=== PATIENT | male | born 1955 | race Caucasian/White ===

== ENCOUNTER 2019-07-22 10:15 | Outpatient (CLI) | payer OTHER ==
[2019-07-22 10:35] LABS: BASOPHILS # (AUTO) 0.1 10^3/uL (0.0-0.1); BASOPHILS % (AUTO) 0.6 %; EOSINOPHILS # (AUTO) 0.2 10^3/uL (0.0-0.7); HGB - HEMOGLOBIN 15.6 g/dL (14.0-18.0); LYMPHOCYTES # (AUTO) 2.2 10^3/uL (1.5-3.5); LYMPHOCYTES % (AUTO) 27.4 %; MEAN CORPUSCULAR HEMOGLOBIN 30.3 pg (27.0-31.0); MEAN CORPUSCULAR HGB CONC 32.8 g/dL (32.0-36.0); MEAN CORPUSCULAR VOLUME 92.2 fL (80.0-94.0); MEAN PLATELET VOLUME 9.3 fL (7.4-11.4); MONOCYTES # (AUTO) 0.6 10^3/uL (0.0-1.0); MONOCYTES % (AUTO) 7.8 %; NEUTROPHILS # (AUTO) 4.9 10^3/uL (1.5-6.6); NEUTROPHILS % (AUTO) 61.7 %; PLT - PLATELET COUNT 334 10^3/uL (130-450); RED BLOOD COUNT 5.15 10^6/uL (4.70-6.10); RED CELL DISTRIBUTION WIDTH 13.9 % (12.0-15.0)
[2019-07-22 10:53] LABS: ALBUMIN 4.3 g/dL (3.2-5.5); ALBUMIN/GLOBULIN RATIO 1.2 (1.0-2.2); ALKALINE PHOSPHATASE 59 IU/L (42-121); ALT ALANINE AMINOTRANSFERASE 29 IU/L (10-60); AST ASPARTATE AMINOTRANSFERASE 26 IU/L (10-42); BILIRUBIN,TOTAL 0.6 mg/dL (0.2-1.0); BUN - BLOOD UREA NITROGEN 15 mg/dL (6-20); CALCIUM 9.7 mg/dL (8.5-10.3); CARBON DIOXIDE - CO2 24 mmol/L (21-32); CHLORIDE 104 mmol/L (101-111); CHOL/HDL RATIO 5.5 (<5.0); CHOLESTEROL 274 mg/dL; CREATININE 0.9 mg/dL (0.6-1.2); GFR - MDRD 85 (>89); GLUCOSE 140 mg/dL (70-100); HDL CHOLESTEROL 50 mg/dL; LDL CHOLESTEROL,CALCULATED 203 mg/dL; LDL/HDL RATIO 4.1 (<3.6); SODIUM 139 mmol/L (135-145); TOTAL PROTEIN 7.8 g/dL (6.7-8.2); VLDL CHOLESTEROL 21 mg/dL
== END 2019-07-22 10:16 | disposition home or self-care (01) ==
LOC: LAB 10:15
PROVIDERS: ATTEND Nurse Practitioner
DX: Z00.00 Encounter for general adult medical examination without abnormal findings (principal); Z13.29 Encounter for screening for other suspected endocrine disorder; Z13.220 Encounter for screening for lipoid disorders
CPT/HCPCS: 36415; 80053; 80061; 83721; 85025

== ENCOUNTER 2022-04-08 09:48 | Emergency (ER) | payer MEDICARE, OTHER ==
[2022-04-08 10:06] VITALS: BP 177/91
[2022-04-08] MEDS ORDERED: TETANUS/DIPHTHERIA/PERTUSSIS 0.5 ML SYRINGE IM ONE (11:52)
[2022-04-08] MEDS ORDERED: lidocaine 1% 20 ML MDV SUBQ ONE (11:53)
--- NOTE | 2022-04-08 11:56 | ED Physician Documentation ---
History of Present Illness - Stated complaint Stated Complaint: THUMB LAC - Chief complaint Chief Complaint: Laceration - Additonal information Additional information: 66-year-old male presents emergency department for evaluation of a left thumb laceration sustained last night when using a table saw. He is right-hand dominant. He sustained an approximate 2 and half centimeter laceration across the fat pad of the thumb. Bleeding has essentially stopped but patient is here for closure. He thinks his last tetanus was about 20 years ago. He denies taking any medications or anticoagulants. Patient is rather frustrated angry and upset about the wait time in the emergency department at the time of my initial evaluation Review of Systems Constitutional: reports: Reviewed and negative Throat: reports: Reviewed and negative Cardiac: reports: Reviewed and negative Respiratory: reports: Reviewed and negative Skin: reports: Laceration (s) Musculoskeletal: reports: Reviewed and negative PD PAST MEDICAL HISTORY - Present Medications Home Medications: Ambulatory Orders Medication Instructions Recorded Confirmed cephALEXin [Keflex] 500 mg PO Q6H #20 cap 04/08/22 oxyCODONE [Roxicodone] 5 mg PO BID PRN #5 tablet 04/08/22 - Allergies Allergies/Adverse Reactions: Allergies Allergy/AdvReac Type Severity Reaction Status Date / Time No Known Drug Allergies Allergy Verified 04/08/22 10:06 PD ED PE EXPANDED - Extremities Extremities: Left finger(s) (2.5 cm laceration across the fat pad of the left thumb. Patient is able to flex and extend at DIP joint. Neurovascularly intact. Distal tip is grossly swollen with a fair amount of subcutaneous fat exuding through the wound.) Results - Vitals Vitals: Vital Signs - 24 hr 04/08/22 10:02 Temperature 36.6 C Heart Rate 88 Respiratory 15 Rate Blood Pressure 177/91 H O2 Saturation 99 Oxygen O2 Source Room air - Rads (name of study) left thumb Radiology: EMP read indepedently (No acute fracture or osseous lesion) Procedures - Laceration (location) left thumb Length in cm: 2.5 Wound type: Linear, Into subcut fat, Into muscle, Contaminated Anesthesia: Lidocaine 1% Wound preparation: Hibiclens, Irrigated copiously NS Skin layer closure: Interrupted, Size #-0 - enter number (4), Sutures - enter # (4) Other: Patient tolerated well, No complications, Neurovascular intact, Tetanus booster given PD MEDICAL DECISION MAKING - ED course Complexity details: reviewed results, considered differential, d/w patient ED course: 66-year-old male presents emergency department for evaluation of a left thumb laceration sustained last night when using a table saw. The wound is now about 18 hours old. Unfortunately it is a gaping wound with fair amount of subcutaneous tissue as well as muscle noted. X-ray did not reveal findings to suggest a fracture. He is neurovascularly intact able to flex and extend easily at the DIP joint. Patient's tetanus was updated today. He very much desired primary closure. We discussed the risk and benefit of delayed wound closure And he agreed to proceed. I was able to approximate most of the wound edges using a 4 interrupted nylon sutures. There was a portion of the wound on the ulnar side of the thumb that could not be approximated and has some exposed subcutaneous tissue. Given the high risk of infection patient was given a gram of Ancef here in the emergency department will be discharged with 5 days of cephalexin. We did discuss routine wound care as well as emergent return precautions for concerns of infection. I am prescribing a short course of short-acting opioid pain medication for this patient. I have reviewed the patients PLATEMAN and no concerning findings were noted. I have discussed that the opioids are for short term therapy only, and will not be refilled from the ED. Departure - Departure Disposition: 01 Home, Self Care Clinical Impression: Laceration of left thumb Qualifiers: Encounter type: initial encounter Damage to nail status: without damage Foreign body presence: without foreign body Qualified Code(s): S61.012A - Laceration without foreign body of left thumb without damage to nail, initial encounter Condition: Stable Record reviewed to determine appropriate education?: Yes Prescriptions: cephALEXin [Keflex] 500 mg PO Q6H #20 cap oxyCODONE [Roxicodone] 5 mg PO BID PRN #5 tablet PRN Reason: Pain Comments: Your suture(s) should be removed in 10 days. In 24 hours you may remove the dressing wash gently with warm soap and water, apply any antibiotic ointment and a simple bandage. Your tetanus is up-to-date as of today. Please attempt to keep your wound clean and dry. Do not submerge it in dirty dishwater or bath water. Because we did do a delayed wound closure there is a fair chance that you could develop an infection in the wound. A prescription for Keflex has been sent to the [facility] in [place]. I was not able to fully close the wound and there is a small portion that remains open. I expect that this will likely take 2 perhaps 3 weeks to fully heal. In about 7 to 10 days you will be able to be able to use your thumb more but continue to guard it and keep it clean if you are working. Return to the emergency department if you have any concerns of infection such as redness, fevers milky drainage increased pain.
[2022-04-08] MEDS ORDERED: BACITRACIN ZINC OINT 1 PACKET TOP STA (12:35)
[2022-04-08] MEDS ORDERED: ceFAZolin 1 GM VIAL IM STA (12:36)
--- NOTE | 2022-04-08 12:38 | XRAY Report ---
PROCEDURE: Finger(s) LT INDICATIONS: table saw lacertion TECHNIQUE: AP hand, 2 views of the first finger(s) acquired. COMPARISON: None FINDINGS: Bones: No fractures or dislocations. No suspicious bony lesions. Soft tissues: Laceration over tip of the first digit is seen. No suspicious soft tissue calcificatio ns. IMPRESSION: Soft tissue laceration involving tip of first digit. No acute fracture or dislocation. No radiopaque foreign bodies are seen. Reviewed by: Mahamed Shah MD on 04/08/2022 12:37 PM PDT Approved by: Mahamed Shah MD on 04/08/2022 12:37 PM PDT Station ID: [id number]
== END 2022-04-08 13:17 | disposition home or self-care (01) ==
LOC: ED 09:48
DX: S61.012A Laceration without foreign body of left thumb without damage to nail, initial encounter (principal); W29.8XXA Contact with other powered hand tools and household machinery, initial encounter; Z23 Encounter for immunization; Z71.85 Encounter for immunization safety counseling
CPT/HCPCS: 12001; 73140; 90471; 90715; 96372; 99283; A9270